=== PATIENT | female | born 1990 | race Two or more races ===

== ENCOUNTER 2024-12-07 11:01 | Emergency (ER) | payer MEDICAID, SELFPAY ==
[2024-12-07] VITALS (15 sets, daily range): BP systolic 98–113; BP diastolic 57–78; PULSE 54–108; RESP 16–20; TEMP 36.6–37.2; O2SAT 95–100; BMI 22.6
--- NOTE | 2024-12-07 12:06 | XR_ITS ---
Examination: CT abdomen with intravenous contrast CT pelvis with intravenous contrast 2-D coronal reconstructions 2-D sagittal reconstructions Date and time of exam:December 07, 2024, 1416 hrs. Indications: Right lower abdominal pain beginning yesterday Comparison: November 25, 2021. CTDI: vol (mGy) 6.4 DLP: (mGycm) 330 Technique: Multiple axial sections of the abdomen and pelvis have been obtained. 64 slice high-resolution scanner used. 3 mm axial sections have been obtained, post intravenous injection 60 cc [id number] 2-D sagittal, coronal reconstructions obtained. Low dose protocols were performed. One or more of the following dose reduction techniques were used; automated exposure control, adjustment of the mA and/or KV according to patient size, use of iterative reconstruction technique. Findings: No focal liver or splenic lesion No gallstones No pancreatic or adrenal mass No renal or ureteral calculi, no hydronephrosis No pericecal inflammatory change Aorta normal size 2. septated cystic masses in the anterior right and central pelvis with wall thickening, measuring in aggregate 15 x 14 cm Urinary bladder intact Impression: Large septated complex cystic masses in the pelvis, differential would include cystadenocarcinoma Recommend transvaginal transabdominal pelvic sonography follow-up
--- NOTE | 2024-12-07 12:06 | XR_ITS ---
Examination: Pelvic ultrasound, transabdominal, complete Technique: Transabdominal ultrasound of the pelvis performed using grayscale imaging Date and time of exam: December 07, 2024, 1420 hrs. Indications: Severe right lower abdominal pain beginning 2 days ago, CT abdomen pelvis today large septated complex cystic masses in the pelvis differential including cystadenocarcinoma Findings: Uterus 8.2 cm endometrial stripe 0.5 cm Right ovary 7.1 cm arterial flow Complex cystic masses in the right adnexal region with internal echoes, 5.7 x 5.4 x 5.4 cm, 3.4 x 2.4 x 2.9 cm Enlarged fallopian tube with free fluid Left ovary 10.4 cm arterial flow Hemorrhagic cyst appearance, cyst with internal echoes 9.1 x 8.6 cm and prominent fallopian tube Impression: Large bilateral complex cystic masses, differential would include cystadenomas, cystadenocarcinoma as well as large tubo-ovarian abscesses Bilateral hydrosalpinx/pyosalpinx Recommend elective MRI pelvis follow-up pre and postcontrast
--- NOTE | 2024-12-07 12:07 | PD.EDABDPN ---
ED Abdominal Pain RME/HPI General Chief Complaint: Abdominal Pain Stated complaint: RIGHT LOWER ABD PAIN x 2 DAYS, HX OVARIAN CYSTS Time seen by provider: 12/07/24 12:06 Arrival date/time: 12/07/24 11:01 Limitations: no limitations RME / HPI RME / HPI narrative: 34-year-old female is here today with a 2-day history of right lower quadrant pain and mild dysuria. She denies any fevers or chills. She has had nausea but no vomiting. No changes in bowel movements. She states she has a remote history of cardiac stenting from a hole in my heart . She is not sure she had a VSD or PDA. She is followed by [facility] for that. She states she has a history of ovarian cyst but this feels different. Patient was initially seen in the triage process. She was later brought back to an exam room and further history obtained. Patient states she also has very heavy menstrual cycles and at times goes to use a pad every 30 minutes. She states she has had blood transfusions in the past. This may explain her current hemoglobin today as it is 6.9, hematocrit is 24.6. She has no leukocytosis. Her metabolic panel is unremarkable. Urine is reveals a contaminated sample. Her imaging studies are pending at this time. Additional studies and interventions were requested. This includes adding a TSH, and type and screen to her workup, 2 units of PRBCs were requested. Related Data Home Medications ?Medication ?Instructions ?Recorded ?Confirmed aspirin 81 mg tablet,delayed 81 tab PO QDAY 09/04/21 12/07/24 release macitentan 10 mg tablet (Opsumit) 10 tab PO QDAY pulmonary 09/04/21 12/07/24 hypertension sildenafil (pulm.hypertension) 20 20 mg PO TID 09/04/21 12/07/24 mg tablet polyethylene glycol 3350 17 17 g PO Q10M 12/07/24 12/07/24 gram/dose oral powder prasugrel HCl 10 mg tablet 10 mg PO QDAY 12/07/24 12/07/24 Allergies Allergy/AdvReac Type Severity Reaction Status Date / Time No Known Allergies Allergy Verified 12/07/24 11:03 Review of Systems Review of Systems Systems Reviewed: All systems reviewed, normal except as documented ED Exam General Limitations: Present no limitations General appearance: Present alert and in distress Head Head exam: Present atraumatic Eye Eye exam: Present normal appearance, PERRL and EOMI ENT ENT exam: Present normal exam, normal oropharynx and mucous membranes moist Neck Neck exam: Present normal inspection, full ROM and trachea midline Chest Chest inspection: Present normal inspection and symmetric chest wall rise Respiratory Respiratory exam: Present normal lung sounds bilaterally Cardiovascular Cardiovascular exam: Present regular rate, normal rhythm and normal heart sounds Abdominal Exam Abdominal exam: Present soft, tenderness, guarding, rebound and rigidity; Absent distention Extremities Exam Extremities exam: Present normal inspection and full ROM Back Exam Back exam: Present normal inspection and full ROM Neurological Exam Neurological exam: Present alert and oriented X3 Psychiatric Psychiatric exam: Present normal affect and normal mood Skin Skin exam: Present warm, dry, intact and normal color Course Quality Measures none Orders Category Date Time Status CT Screening NOW Care 12/07/24 12:07 Completed NPO NOW Care 12/07/24 12:07 Completed Occult Blood,Stool (Nursing) ONCE Care 12/07/24 13:30 Completed Consult to Obstetrics Stat Cons 12/07/24 18:24 Ordered Diet NPO (NOW) Diet 12/07/24 12:[address] abdomen pelvis w con Stat Exams 12/07/24 12:06 Completed US pelvic complete Stat Exams 12/07/24 12:06 Completed CBC Stat Lab 12/07/24 12:20 Completed CMP [Comprehensive Metabolic Panel] Stat Lab 12/07/24 12:20 Completed HCG,Qualitative Serum Stat Lab 12/07/24 12:20 Completed Lactic Acid [Lactate (Lactic Acid)] Stat Lab 12/07/24 12:20 Completed Lipase Stat Lab 12/07/24 12:20 Completed Path Review Blood Smear Stat Lab 12/07/24 12:20 Completed Thyroid Stimulating Hormone Stat Lab 12/07/24 12:20 Completed Type and Screen Stat Lab 12/07/24 13:46 Completed UA, C/S IF [Urinalysis, C/S if Indicated] Stat Lab 12/07/24 12:40 Completed prbc [Red Blood Cells] Stat Lab 12/07/24 13:46 Completed HYDROcodone*/APAP 5/325 [[place] 5/325] Med 12/07/24 12:06 Discontinued 1 tab PO X1 ONE HYDROcodone*/APAP 5/325 [[place] 5/325] Med 12/07/24 18:10 Discontinued 1 tab PO X1 ONE Ondansetron Odt [Zofran Odt] Med 12/07/24 12:06 Discontinued 4 mg PO X1 ONE Vital Signs Vital signs: Vital Signs Temperature 98.5 F 12/07/24 11:34 Pulse Rate 108 H 12/07/24 11:34 Respiratory Rate 19 12/07/24 11:34 Blood Pressure 113/69 12/07/24 11:34 Pulse Oximetry (%) 95 12/07/24 11:34 Oxygen Delivery Method Aerosol Mask 12/07/24 11:34 Abdominal Pain MDM MDM Narrative MDM Narrative:: 34-year-old female is here today with a 2-day history of right lower quadrant pain and mild dysuria. She denies any fevers or chills. She has had nausea but no vomiting. No changes in bowel movements. She states she has a remote history of cardiac stenting from a hole in my heart . She is not sure she had a VSD or PDA. She is followed by [facility] for that. She states she has a history of ovarian cyst but this feels different. On exam, patient is ill-appearing but nontoxic-appearing. She has mild tachycardia at 108 bpm, vital signs are otherwise stable. Her abdominal exam reveals mild guarding, diffuse tenderness, but no masses. There is very mild rigidity present. Workup was initiated and patient was found to have a hemoglobin of 6.9, she was typed and screened. 2 units of PRBCs were ordered. CT abdomen pelvis in addition to pelvic ultrasound was obtained. Results of her imaging test revealed a right adnexal mass measuring 5.4 x 5.4 x 3 0.4 x 2.4 x 2.9 cm. There is no large fallopian tube with free fluid. Left ovary reveals a 10.4 cm arterial flow. There is question of a hemorrhagic cyst versus carcinoma. There is question of possible tubo-ovarian abscess. Dr. Bradford with gynecology was contacted, case was discussed, she will see the patient in the ER. Patient data External records reviewed:: [facility] previous records Clinical information provided by:: patient Social determinants that could affect healthcare access:: none Patient has the following chronic illnesses:: Anemia, VSD How is presenting disease/condition affected by chronic disease/condition?: exacerbated by Evaluation data The following diagnostics were reviewed and interpreted by me:: lab results and radiology exam(s) Lab and/or radiology exams considered but not ordered:: n/a Interpretation Summary: Significant anemia and endometriosis Medications / Prescriptions Medications or Prescriptions considered but not ordered:: n/a Medication administrations:: Medication Administration History Discontinued Medications Hydrocodone Bitart/Acetaminophen (Hydrocodone/Apap 5/325 Tablet) 1 tab PO X1 ONE Stop: 12/07/24 12:07 Last Admin: 12/07/24 13:11 Dose: 1 tab Documented By: Hydrocodone Bitart/Acetaminophen (Hydrocodone/Apap 5/325 Tablet) 1 tab PO X1 ONE Stop: 12/07/24 18:11 Last Admin: 12/07/24 18:33 Dose: 1 tab Documented By: DESTINY Ondansetron HCl (Ondansetron Odt 4 Mg Tabrap) 4 mg PO X1 ONE; Protocol Stop: 12/07/24 12:07 Last Admin: 12/07/24 13:10 Dose: 4 mg Documented By: See above Consultations Consultation(s) initiated? (list below): Yes Diagnosis Differential diagnosis abdominal pain: abdominal pain, constipation, endometriosis and small bowel obstruction Most likely diagnosis given after review of the tests above:: Anemia, endometriosis Admission Indicated Admission indicated?: not indicated Admission Request Was there a request for admission?: No Disposition Plan Disposition Plan: Discharge Discharge Attestation Discharge Attestation: The patient and all family members were given an opportunity to ask questions and understood the discharge instructions. Discharge instructions specifically effects, indications for sooner follow up or return to the emergency department, and the expected course of current diagnosis. Patient condition: Stable Critical Care Time Critical Care Time Critical Care Time: Yes Total Critical Care Time (min.): 45 Attestation: The high probability of sudden, clinically significant deterioration in the patient's condition required the highest level of my preparedness to intervene urgently. The services I provided to this patient were to treat and/or prevent clinically significant deterioration. Services included the following: chart data review, reviewing nursing notes and/or old charts, documentation time, integration consultant collaboration regarding findings and treatment options, medication orders and management, direct patient care, vital sign assessments and ordering, interpreting and reviewing diagnostic studies and lab tests. Aggregate critical care time includes only time during which I was engaged in work directly related to the patient's care, as described above, whether at bedside or elsewhere in the Emergency Department. It did not include time spent performing other reported procedures or the services of residents, students, nurses or physician assistants. Discharge Plan Plan Patient Disposition: HOME (Self Care) Patient condition on transfer: Stable Prescriptions/Referrals Prescriptions/Med Rec: No Action aspirin 81 mg tablet,delayed release (DR/EC) 81 tab PO QDAY Patient Comments: TAKE 1 TABLET BY MOUTH EVERY DAY sildenafil (pulm.hypertension) 20 mg Tablet 20 mg PO TID Rx Instructions: administer doses at least 4-6 hours apart Opsumit 10 mg tablet 10 tab PO QDAY polyethylene glycol 3350 17 gram/dose powder 17 g PO Q10M prasugrel HCl 10 mg tablet 10 mg PO QDAY Patient Comments: TAKE 1 TABLET BY MOUTH EVERY DAY Referrals: Ulysses Brink MD [Primary Care Provider] - In 1 week Problem List Clinical Impression: Anemia, Endometriosis Patient/Caregiver Discharge Instructions Education Materials: Anemia, ED Endometriosis Additional Instructions: - It is very likely contact your specialty team at [facility] tomorrow morning for close follow-up appointment and discuss your visit here today. - Will need cardiac clearance for follow-up appointment with [facility]ICE to discuss your endometriosis and severe anemia. - As Dr. Martins mentions during your visit with her, this may lead to future infertility, worsening anemia, and there is even risk of with untreated anemia. He received 2 units of blood. Emergent blood transfusion due to your anemia today. - You may also follow-up with Dr Martins as an outpatient as discussed. - You are invited to seek emergent care here or at [facility] anytime for any worsening or emergent changes. Print Language: Faroese Stand Alone Forms: Joan Award Info., Patient Portal Info Letter
[2024-12-07 12:32] LABS: Lactate (Lactic Acid) 0.8 mMol/L (0.4-2.0)
[2024-12-07 13:01] LABS: Collection Type, Urine Voided
[2024-12-07 13:05] LABS: Alanine Aminotransferase < 7 U/L (10-49); Albumin, Serum 4.5 gm/dL (3.5-5.0); Albumin/Globulin Ratio 1.7 (1.2-2.2); Alkaline Phosphatase 62 U/L (46-116); Anion Gap 8 (7-16); Aspartate Amino Transferase 10 U/L (0-34); BUN/Creatinine Ratio 15 Ratio (12-20); Bilirubin,Total 0.5 mg/dL (0.3-1.2); Blood Urea Nitrogen 12 mg/dL (9-23); Calcium 10.0 mg/dL (8.3-10.6); Calcium (Corrected) 10.0 mg/dL (8.5-10.1); Carbon Dioxide 21.6 mMol/L (20.0-31.0); Chloride 109 mMol/L (98-107); Creatinine (Component) 0.8 mg/dL (0.6-1.3); Estimated Creatinine Clearance 93.6 mL/min (>60); Globulin 2.6 gm/dL (2.3-3.5); Glucose 93 mg/dL (74-106); Lipase 32 U/L (12-53); Osmolality,Calculated 277 (275-295); Potassium 4.6 mMol/L (3.4-5.1); Sodium 139 mMol/L (136-145); Total Protein 7.1 gm/dL (5.7-8.2); eGFR > 60 See Note
[2024-12-07] MEDS: ONDANSETRON ODT 4 MG TABRAP PO (13:10)
[2024-12-07] MEDS: HYDROcodone/APAP 5/325 TABLET 1 TAB PO ×2 (13:11→18:33)
[2024-12-07 13:20] LABS: Bilirubin,Urine Negative (Negative); Blood,Urine Negative (Negative); Clarity,Urine Turbid (Clear/Hazy); Color,Urine Yellow (Lt Yel-Yel); Culture Indicated,Urine Not Indicated; Glucose, Urine Negative (Negative); Ketones,Urine Negative (Negative); Leukocyte Esterase,Urine Positive (Negative); Nitrite,Urine Negative (Negative); PH,Urine 5.5 (5.0-7.0); Protein,Urine Negative (Neg - Trace); RBC,Urine 4 /hpf (0-3); Specific Gravity,Urine 1.026 (1.001-1.035); Squamous Epithelial Cell,Urine 20 /hpf (0-5); Urobilinogen,Urine Negative mg/dL (0.0-1.0); WBC,Urine 10 /hpf (0-5)
[2024-12-07 13:23] LABS: Basophils # (Auto) 0.0 Thou/mm3 (0.0-0.2); Basophils % (Auto) 1 % (0-2.5); Eosinophils # (Auto) 0.1 Thou/mm3 (0.0-0.5); Eosinophils % (Auto) 1 % (0-10); Hematocrit 24.6 % (36.0-46.0); Immature Granulocytes Auto 0.01 Thou/mm3 (0.00-0.00); Lymphocytes # (Auto) 1.1 Thou/mm3 (1.0-4.8); Lymphocytes % (Auto) 22 % (10-50); Mean Corpuscular HGB Conc 28.0 g/dl (31.0-37.0); Mean Corpuscular Hemoglobin 19.9 pg (25.0-35.0); Mean Corpuscular Volume 71 fL (80-100); Monocytes # (Auto) 0.6 Thou/mm3 (0.0-0.8); Monocytes % (Auto) 12 % (0-12); Neutrophils # (Auto) 3.2 Thou/mm3 (1.8-7.7); Neutrophils % (Auto) 64 % (37-80); Nucleated Red Blood Cell # 0.00 Thou/mm3 (0.00-0.00); Nucleated Red Blood Cell % 0 /100 WBC (0); Platelet Count 226 Thou/mm3 (140-440); RDW Standard Deviation 61.1 fL (36.4-46.3); Red Blood Count 3.47 Miln/mm3 (4.00-5.20); White Blood Count 5.1 Thou/mm3 (3.6-11.0)
[2024-12-07 13:27] LABS: Hemoglobin 6.9 g/dL (12.0-16.0)
[2024-12-07 13:32] LABS: HCG,Qualitative Serum Negative
[2024-12-07 14:20] LABS: Path Review Blood Smear Sent to Pathologist
[2024-12-07 14:43] LABS: Thyroid Stimulating Hormone 1.58 uIU/mL (0.55-4.78)
--- NOTE | 2024-12-07 19:53 | ESCONSULT_ITS ---
TRANSMISSION LINE ENGINEER HPI Data of Consult Patient: new to practice Consult date: 12/07/24 Requesting Physician: Physicians speech language pathology assistant in ER Primary Care Provider: Ulysses Brink MD Consult Narrative Reason for consult: pelvic pain and pelvic mass History of present illness: The patient is a 34-year-old G0 with a complicated past medical history. She states that she has an ASD that was closed surgically about a year ago, and a stent in her heart, and pulmonary hypertension. Her medical technician assistant is at [facility]. She is on a blood thinner. She has a follow-up with her medical technician assistant in 1 month. The patient states her cycles have always been heavy. She was on control pills in the past but not recently. She states she was considering Depo-Provera. She has not had a Pap in a while and she does not remember her last Pap smear. She denies any history of abnormal Pap smears. I was called by the physicians speech language pathology assistant in the ER to evaluate the patient after she presented to the ER for pelvic pain. She did have an ultrasound performed revealing an 8.2 cm uterus with a stripe of 0.5 cm she had bilateral complex masses on her ovary ovaries. Her right ovary measured 7.1 cm with 2 complex masses one measuring 5.7 x 5.4 x 5.4 cm one was measuring 3.4 x 2.4 x 2.9 cm. Her fallopian tube appeared enlarged on the right side. Her left ovary was enlarged to 10.4 cm with a cyst with internal echoes measuring 9.1 x 8.6 cm. I reviewed the images of her ultrasound and her bilateral ovarian cystic masses are consistent with endometriomas. Today the patient is not actively bleeding and is not on her cycle. She does not have a large amount of blood in her abdomen. She has no signs of ovarian torsion as both of her adnexal masses and ovaries have blood flow to them. The patient describes her pain as located in the right lower quadrant and constant and stabbing. She denies fevers, chills ,nausea, vomiting or diarrhea. She denies blood in her stools. She denies new sexual contacts, she denies abnormal discharge or foul odor. Patient is sexually active using condoms. Upon review of her extensive visits to the emergency room, she has had pelvic pain on a few occasions. She was taken to the OR in November of [address] Weber, who was a hand deicer element winder here. He performed a diagnostic laparoscopy and noted in his op report bilateral endometriomas on both ovaries situated in the pouch of Henrry and severe endometriosis throughout the pelvis. He did not drain either of the endometriomas, just documented the endometriosis and apparently took pictures. I do not see those anywhere on her chart. The patient was told about these findings and that she had chocolate cysts The patient presented again in November 2021 with pelvic pain and Dr. Rivera was on-call. He admitted the patient 11/25/21 to 11/26/2021 overnight. Per his notes, her pain improved and she declined surgery at that time. She admits she did not follow-up with Dr. Rivera as an outpatient. She does not have a regular hand deicer element winder. After about a 30-minute [id number] discussion with the patient, we decided a blood transfusion of 2 units is in order as the patient's hemoglobin is 6.9. Her thyroid is normal. She has no signs of active bleeding today. I then discussed stabilizing the lining and helping with pelvic pain by starting her on low-dose control pills. I would want her to clear this with her medical technician assistant first. Her plan is to call [facility] and discuss this with cardiology. I will put an order in for control pills to her pharmacy. She can take ibuprofen as needed for cramping pain and I will prescribe some Pat[place] but I did warn her this can be addictive. I suspect she has stage IV endometriosis based on Dr Weber's laparoscopic findings from almost 5 years ago and from her ultrasounds that she has have performed. All of them appear to show ovarian masses consistent with endometriomas or chocolate cysts . In addition, the patient unfortunately has at least one if not both fallopian tubes that are dilated. I told the patient that if she is going to proceed with laparoscopic removal of her endometriosis, this needs to be performed by specialist preferably a gynecological oncologist or minimally invasive hand deicer element winder. This would best be performed at a tertiary care center. Patient states her medical technician assistant at [facility] wanted her to have any surgery performed there if possible. As this is not an emergency today , the patient has no active bleeding and she is actually comfortable during her 30-minute interview with me, I think this can be arranged as an outpatient. I warned the patient that severe endometriosis can lead to infertility. She might need to have both fallopians tube removed. She might have to have one or both of her ovaries removed. I warned her endometriosis is a medically managed disease for the most part. The pain is usually controlled with control pills. The patient might need IVF if she wants to pursue . If the patient wants to pursue , she would need to be managed at a tertiary care center with the maternal- medicine specialist secondary to her cardiac anomaly and stent and blood thinners etc. All her questions were answered to the best of my ability. She was given the number for the [facility] to follow-up to be referred out of the area. cc:: cc: Review of Systems Review of Systems Narrative Review of Systems: Patient reports pelvic pain, stabbing in nature, no nausea, vomiting, diarrhea, constipation,or heavy vaginal bleeding. No fevers or chills. Meds Home Medications and Allergies Home Medications ?Medication ?Instructions ?Recorded ?Confirmed ?Type aspirin 81 mg tablet,delayed 81 tab PO QDAY 09/04/21 0 12/07/24 History release macitentan 10 mg tablet (Opsumit) 10 tab PO QDAY pulmo nary 09/04/21 12/07/24 History hypertension sildenafil (pulm.hypertension) 20 20 mg PO TID 2 12/07/24 History mg tablet polyethylene glycol 3350 17 17 g PO Q10M 12/07/2411/15 History gram/dose oral powder prasugrel HCl 10 mg tablet 10 mg PO QDAY 12/07/2411/15 History Allergies Allergy/AdvReac Type Severity Reaction Status Date / Time No Known Allergies Allergy Verified 12/07/24 11:03 Exam - TRANSMISSION LINE ENGINEER Vital Signs Temp Pulse Resp BP Pulse Ox O2 Del Method 98.8 F 68 19 112/73 98 Room Air 12/07/24 19:52 12/07/24 19:52 12/07/24 19:52 12/07/24 19:52 12/07/24 19:52 12/07/24 19:52 Narrative Exam Patient is alert and oriented x 3 in no apparent distress Constitutional Constitutional: no acute distress Routine Abdominal Exam Abdominal: Present soft and tenderness (Slight tenderness in right lower quadrant) Routine Exam Comments: Normal external genitalia. Pelvic exam reveals some diffuse tenderness of her right and left adnexa. Difficult to feel if pelvis is fixed based on patient discomfort. TRANSMISSION LINE ENGINEER - Results Labs 12/07/24 12:20 12/07/24 12:20 Labs: Short CBC 12/07/24 Range/Units 12:20 WBC 5.1 (3.6-11.0) Thou/mm3 Hgb 6.9 L* (12.0-16.0) g/dL Hct 24.6 L (36.0-46.0) % Plt Count 226 (140-440) Thou/mm3 BMP 12/07/24 12:20 Sodium 139 Potassium 4.6 Chloride 109 H Carbon Dioxide 21.6 BUN 12 Creatinine 0.8 Glucose 93 Calcium 10.0 Liver Function 12/07/24 Range/Units 12:20 Total Bilirubin 0.5 (0.3-1.2) mg/dL AST 10 (0-34) U/L ALT < 7 L (10-49) U/L Alkaline Phosphatase 62 (46-116) U/L Albumin 4.5 (3.5-5.0) gm/dL Urine 12/07/24 Range/Units 12:40 Urine Color Yellow (Lt Yel-Yel) Urine Clarity Turbid A (Clear/Hazy) Urine pH 5.5 (5.0-7.0) Ur Specific [place] 1.026 (1.001-1.035) Urine Protein Negative (Neg - Trace) Urine Glucose (UA) Negative (Negative) Imaging and Cardiology US - abdomen: Status: image reviewed by me Additional comments: Reports reviewed. Images reviewed by me. Assessment and Plan Assessment and plan (1) Endometriosis: Status: Acute Assessment and plan: To be referred out of the area for a specialist for laparoscopic evaluation and treatment of extensive endometriosis. Will refer to [facility] if possible. (2) Abdominal pain: Status: Acute Assessment and plan: Recommended control pills to decrease heavy vaginal bleeding and for pelvic pain. Motrin and Paterson as needed. Additional Assessment & Plan Additional Plan: Patient can call the office if she needs a referral area code [phone]. (2) Abdominal pain Qualifiers: Abdominal location: right lower quadrant Qualified Code(s): R10.31 - Right lower quadrant pain
== END 2024-12-07 21:58 | disposition home or self-care (01) ==
PROVIDERS: Physician Assistant Medical; Emergency Provider Emergency Medicine; PCP Family Medicine
DX: N80.9 Endometriosis, unspecified (principal); D64.9 Anemia, unspecified
CPT/HCPCS: 36415; 74177; 76856; 80053; 81001; 83605; 83690; 84443; 84703; 85025; 86850; 86900; 86901; 86923; 99283; A4649; P9016; Q0162; Q9967; A9270

== ENCOUNTER 2025-02-13 12:39 | Emergency (ER) | payer MEDICAID, SELFPAY ==
[2025-02-13 12:57] VITALS: BP 120/78; PULSE 87; RESP 16; TEMP 36.8; O2SAT 98; BMI 22.6
--- NOTE | 2025-02-13 13:00 | XR_ITS ---
Examination: Duplex scan of the upper extremity, unilateral left Date and time of exam: February 12 11441: 1538 hours INDICATIONS: Left arm bruising lump and pain 5 hours Technique: Duplex scan of the extremity veins using B-mode/grayscale imaging and Doppler spectral analysis and color flow Attention is directed to internal echogenicity, compression and augmentation involving these veins, color flow assessment, spectral analysis Findings: Major deep venous structures in the extremity demonstrate normal course and caliber. There is no evidence of deep vein thrombosis. Normal color flow and spectral analysis Probable hematoma at the area of concern 4.5 x 3.3 cm versus lipoma Impression: Negative for DVT..
[2025-02-13 14:30] LABS: Basophils # (Auto) 0.1 Thou/mm3 (0.0-0.2); Basophils % (Auto) 2 % (0-2.5); Eosinophils # (Auto) 0.1 Thou/mm3 (0.0-0.5); Eosinophils % (Auto) 2 % (0-10); Hematocrit 31.8 % (36.0-46.0); Hemoglobin 9.9 g/dL (12.0-16.0); Immature Granulocytes Auto 0.01 Thou/mm3 (0.00-0.00); Lymphocytes # (Auto) 1.3 Thou/mm3 (1.0-4.8); Lymphocytes % (Auto) 27 % (10-50); Mean Corpuscular HGB Conc 31.1 g/dl (31.0-37.0); Mean Corpuscular Hemoglobin 27.2 pg (25.0-35.0); Mean Corpuscular Volume 87 fL (80-100); Monocytes # (Auto) 0.4 Thou/mm3 (0.0-0.8); Monocytes % (Auto) 9 % (0-12); Neutrophils # (Auto) 2.8 Thou/mm3 (1.8-7.7); Neutrophils % (Auto) 60 % (37-80); Nucleated Red Blood Cell # 0.00 Thou/mm3 (0.00-0.00); Nucleated Red Blood Cell % 0 /100 WBC (0); Platelet Count 184 Thou/mm3 (140-440); RDW Standard Deviation 57.1 fL (36.4-46.3); Red Blood Count 3.64 Miln/mm3 (4.00-5.20); White Blood Count 4.7 Thou/mm3 (3.6-11.0)
[2025-02-13 14:45] LABS: INR 1.0 (0.9-1.3); Partial Thromboplastin Time 30.2 Seconds (22.0-36.0); Prothrombin Time 10.4 Seconds (9.0-12.2)
[2025-02-13 14:59] LABS: Alanine Aminotransferase < 7 U/L (10-49); Albumin, Serum 4.6 gm/dL (3.5-5.0); Albumin/Globulin Ratio 2.0 (1.2-2.2); Alkaline Phosphatase 52 U/L (46-116); Anion Gap 7 (7-16); Aspartate Amino Transferase 14 U/L (0-34); BUN/Creatinine Ratio 10 Ratio (12-20); Bilirubin,Total 0.4 mg/dL (0.3-1.2); Blood Urea Nitrogen 8 mg/dL (9-23); Calcium 9.6 mg/dL (8.3-10.6); Calcium (Corrected) 9.6 mg/dL (8.5-10.1); Carbon Dioxide 21.2 mMol/L (20.0-31.0); Chloride 111 mMol/L (98-107); Creatinine (Component) 0.8 mg/dL (0.6-1.3); Estimated Creatinine Clearance 93.6 mL/min (>60); Globulin 2.3 gm/dL (2.3-3.5); Glucose 96 mg/dL (74-106); Osmolality,Calculated 275 (275-295); Potassium 4.7 mMol/L (3.4-5.1); Sodium 139 mMol/L (136-145); Total Protein 6.9 gm/dL (5.7-8.2); eGFR > 60 See Note
--- NOTE | 2025-02-13 15:55 | PD.EDSKIN ---
ED Skin Abcess FB-RME/HPI General Chief complaint: Skin/Abscess/Foreign Body Stated complaint: Bump to left arm, on blood thinners Time Seen by Provider: 02/13/25 12:44 Arrival date/time: 02/13/25 12:39 34-year-old female presents to the Emergency Department today for complaints of bruising to her left arm patient reports that she is currently on blood thinners. Patient reports no fever nausea vomiting no headache dizziness or weakness Limitations: no limitations Related Data Home Medications ?Medication ?Instructions ?Recorded ?Confirmed aspirin 81 mg tablet,delayed 81 tab PO QDAY 09/04/21 12/07/24 release macitentan 10 mg tablet (Opsumit) 10 tab PO QDAY pulmonary 09/04/21 12/07/24 hypertension sildenafil (pulm.hypertension) 20 20 mg PO TID 09/04/21 12/07/24 mg tablet polyethylene glycol 3350 17 17 g PO Q10M 12/07/24 12/07/24 gram/dose oral powder prasugrel HCl 10 mg tablet 10 mg PO QDAY 12/07/24 12/07/24 Allergies Allergy/AdvReac Type Severity Reaction Status Date / Time No Known Allergies Allergy Verified 02/13/25 12:43 Review of Systems Review of Systems Systems Reviewed: All systems reviewed, normal except as documented Constitutional Constitutional: Reports system reviewed and no additional complaints, except as documented, Denies fever(s) and Denies headache(s) Eyes Eyes: Reports system reviewed and no additional complaints, except as documented and Denies blurry vision ENT Ears, Nose, Mouth, and Throat: Reports system reviewed and no additional complaints, except as documented, Denies headache(s), Denies nasal congestion and Denies nasal discharge Cardiovascular Cardiovascular: Reports system reviewed and no additional complaints, except as documented, Denies chest pain and Denies dyspnea Respiratory Respiratory: Reports system reviewed and no additional complaints, except as documented, Denies chest congestion, Denies cough and Denies dyspnea Gastrointestinal Gastrointestinal: Reports system reviewed and no additional complaints, except as documented and Denies abdominal pain Musculoskeletal Musculoskeletal: Reports system reviewed and no additional complaints, except as documented, Denies arthralgias and Denies joint swelling Integumentary/Breasts Skin/Breast: Reports system reviewed and no additional complaints, except as documented and Denies rash Neurologic Neurologic: Reports system reviewed and no additional complaints, except as documented, Reports as per HPI and Denies headache(s) Past Medical History Past Medical History NEUROLOGIC: Negative Neurological Disorders or Seizures CARDIAC: Positive Congenital Heart Disease; Negative Cardiac Disorders, Congestive Heart Failure, Edema, Cellulitis or Varicose Veins RESPIRATORY: Negative Chronic Obstructive Pulmonary Disease (COPD), Asthma, Pneumonia, Tuberculosis or Sleep Apnea GASTROINTESTINAL: Positive Gastrointestinal Disorders and Gastroesophageal Reflux Disease; Negative Hepatitis GENITOURINARY: Negative Genitourinary Disorders or Renal Disease REPRODUCTIVE: Negative Previous Pregnancies MUSCULOSKELETAL: Positive Musculoskeletal Disorders ENDOCRINE: Negative Endocrine Disorders, Diabetes Mellitus Type 1 or Diabetes Mellitus Type 2 HEMATOLOGIC: Negative Blood Disorders or Sickle Cell Disease PSYCHO/SOCIAL: Positive Psychiatric Problems, Depression and Anxiety OTHER HISTORY: Negative Hospitalization, Autoimmune Disease, Shingles, Falls, Blood Transfusions, Chemotherapy, Radiation Therapy, MRSA, Chicken Pox, Measles, Mumps or Cancer Family History FAMILY HISTORY: Positive Family Cardiac Disorders; Negative Family Psychiatric Problems, Family Respiratory Disorders, Family Gastrointestinal Problems, Family Cancer, Family Surgery or Family Anesthesia Reaction Surgical History SURGICAL: Negative Pacemaker Social History SMOKING STATUS: Former smoker SUBSTANCE USE: former substance user and marijuana ED Exam General Limitations: Present no limitations General appearance: Present alert and in no apparent distress Head Head exam: Present atraumatic Eye Eye exam: Present normal appearance, PERRL and EOMI ENT ENT exam: Present normal exam, normal oropharynx and mucous membranes moist Neck Neck exam: Present normal inspection, full ROM and trachea midline Chest Chest inspection: Present normal inspection and symmetric chest wall rise Respiratory Respiratory exam: Present normal lung sounds bilaterally Cardiovascular Cardiovascular exam: Present regular rate, normal rhythm and normal heart sounds Abdominal Exam Abdominal exam: Present soft and normal bowel sounds Extremities Exam Extremities exam: Present full ROM, tenderness (Bruising left arm) and normal capillary refill; Absent joint swelling Back Exam Back exam: Present normal inspection and full ROM Neurological Exam Neurological exam: Present alert, oriented X3, CN II-XII intact, normal gait and reflexes normal; Absent motor sensory deficit Psychiatric Psychiatric exam: Present normal affect and normal mood Skin Skin exam: Present warm, dry, intact, normal color and other (Bruising left arm) Course Quality Measures none Orders Category Date Time Status US venous doppler UE LT Stat Exams 02/13/25 13:00 Completed CBC Stat Lab 02/13/25 14:16 Completed Comprehensive Metabolic Panel Stat Lab 02/13/25 14:16 Completed Partial Thromboplastin Time Stat Lab 02/13/25 14:16 Completed Prothrombin Time with INR Stat Lab 02/13/25 14:16 Completed Vital Signs Vital signs: Vital Signs Temperature 98.2 F 02/13/25 12:57 Pulse Rate 87 02/13/25 12:57 Respiratory Rate 16 02/13/25 12:57 Blood Pressure 120/78 02/13/25 12:57 Pulse Oximetry (%) 98 02/13/25 12:57 Oxygen Delivery Method Room Air 02/13/25 12:57 O2 saturation 98% room air within normal limits Skin / Abscess / Foreign Body MDM Narrative MDM Narrative:: 34-year-old female presents to the Emergency Department today for complaints of bruising to her left arm patient reports that she is currently on blood thinners. Patient reports no fever nausea vomiting no headache dizziness or weakness Clinically this appears to be a bruise but as patient is on blood thinners a workup will be completed Lab work and imaging obtained no acute emergent findings noted Patient discharged home in no distress to follow-up with primary care doctor in the next 24 to 48 hours and for any worsening symptoms to return to the ER immediately Patient data External records reviewed:: [facility] previous records Clinical information provided by:: patient Social determinants that could affect healthcare access:: none Patient has the following chronic illnesses:: None How is presenting disease/condition affected by chronic disease/condition?: no chronic disease Evaluation data The following diagnostics were reviewed and interpreted by me:: other (specify) (N/A) Lab and/or radiology exams considered but not ordered:: Considered not ordered Interpretation Summary: N/A Medications / Prescriptions Medications or Prescriptions considered but not ordered:: Given Medication administrations:: Given Consultations Consultation(s) initiated? (list below): No Diagnosis Skin/Abscess Differential Diagnosis: abscess of skin or subcutaneous tissue and cellulitis Most likely diagnosis given after review of the tests above:: Superficial bruising Admission Indicated Admission indicated?: not indicated Admission Request Was there a request for admission?: No Disposition Plan Disposition Plan: Discharge Discharge Attestation Discharge Attestation: The patient and all family members were given an opportunity to ask questions and understood the discharge instructions. Discharge instructions specifically effects, indications for sooner follow up or return to the emergency department, and the expected course of current diagnosis. Patient condition: Stable Discharge Plan Plan Patient Disposition: HOME (Self Care) Discharge Disposition comment: Stable Prescriptions/Referrals Prescriptions/Med Rec: No Action aspirin 81 mg tablet,delayed release (DR/EC) 81 tab PO QDAY Patient Comments: TAKE 1 TABLET BY MOUTH EVERY DAY sildenafil (pulm.hypertension) 20 mg Tablet 20 mg PO TID Rx Instructions: administer doses at least 4-6 hours apart Opsumit 10 mg tablet 10 tab PO QDAY polyethylene glycol 3350 17 gram/dose powder 17 g PO Q10M prasugrel HCl 10 mg tablet 10 mg PO QDAY Patient Comments: TAKE 1 TABLET BY MOUTH EVERY DAY Referrals: No Primary/Family,Physician [Primary Care Provider] - In 1 week Problem List Clinical Impression: Hematoma of left forearm Patient/Caregiver Discharge Instructions Education Materials: Bruises (Contusions) Additional Instructions: Please follow up with your primary care doctor in the next 24-48hrs for any worsening symptoms return here immediately Print Language: Egyptian Stand Alone Forms: Joan Award Info., Patient Portal Info Letter PA/TOOL CRIB ATTENDANT Supervising Physician PA/TOOL CRIB ATTENDANT Supervising Physician: Dr. Arevalo
--- NOTE | 2025-02-13 16:53 | PRELIM_ITS ---
Left upper extremity venous Doppler ultrasound. February 13, 2025 1503 hours Clinical history: Rule out deep vein thrombosis. Technique: Duplex scan of the left arm performed utilizing, 2D grayscale imaging, Doppler spectral analysis and color flow Doppler with compression. Comparison: No prior study is available for comparison. Findings: The internal jugular vein is patent and compressible. The subclavian vein is patent. The axillary and brachial veins are patent and demonstrate compression. The cephalic and basilic veins are patent and demonstrate compression. The radial and ulnar veins are patent. No evidence of thrombosis. At the site of bruising/swelling in the left lateral mid forearm, a 4.5 x 1 x 3.3 cm ill-defined subcutaneous ovoid hyperechoic structure is demonstrated, without internal vascularity. There is associated mild subcutaneous soft tissue edema. Impression: No evidence of venous thrombosis in the left upper extremity. Ill-defined hyperechoic subcutaneous area in the left lateral mid forearm. Possibilities include hematoma, lipoma (less likely). Recommend clinical correlation and follow up. Report Electronically Signed By: Jalyn Duval 02/13/2025 4:52:47 PM [EST]
== END 2025-02-13 16:39 | disposition home or self-care (01) ==
PROVIDERS: Nurse Practitioner Primary Care; Emergency Provider Emergency Medicine
DX: S40.012A Contusion of left shoulder, initial encounter (principal); W22.8XXA Striking against or struck by other objects, initial encounter
CPT/HCPCS: 36415; 80053; 85025; 85610; 85730; 93971; 99283